=== PATIENT | female | born 1945 | race Caucasian/White ===

== ENCOUNTER 2024-01-28 12:43 | Emergency (ER) | payer MEDICARE, BC, SELFPAY ==
--- NOTE | ~2024-01-28 | XR_ITS ---
EXAMINATION: XR knee RT 3V DATE: 01/28/2024 13:27 INDICATION: Right knee injury. TECHNIQUE: 3 views of right knee were obtained. COMPARISON: None. 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 There is an oblique periprosthetic fracture of distal femoral metaphysis in near anatomic alignme nt. No periprosthetic lucency to suggest loosening or infection. No knee joint effusion. IMPRESSION: 1. Oblique periprosthetic fracture of distal femoral metaphysis in near anatomic alignment. Reviewed, dictated and finalized at location A. IMPRESSION: 1. Oblique periprosthetic fracture of distal femoral metaphysis in near anatomi c alignment.
[2024-01-28 12:48] VITALS: BP 151/87; PULSE 94; RESP 18; TEMP 36.7; O2SAT 99
[2024-01-28 14:40] VITALS: BP 141/86; PULSE 71; RESP 16; O2SAT 99
--- NOTE | 2024-01-28 14:50 | ED.LOWEXIN ---
HPI - Extremity Injury (Lower) General Chief Complaint: Extremity Injury, Lower Stated Complaint: R knee pain after fall in bathtub last night Related Data Allergies Allergy/AdvReac Type Severity Reaction Status Date / Time Penicillins Allergy Anaphylactic Verified 01/28/24 12:46 Shock Course Vital Signs Vital signs: Vital Signs Temperature 36.7 C 01/28/24 12:48 Pulse Rate 94 01/28/24 12:48 Respiratory Rate 18 01/28/24 12:48 Blood Pressure 151/87 H 01/28/24 12:48 Pulse Oximetry 99 01/28/24 12:48 Oxygen Delivery Room Air 01/28/24 12:48 Temperature 36.7 C 01/28/24 12:48 Pulse Rate 94 01/28/24 12:48 Respiratory Rate 18 01/28/24 12:48 Blood Pressure 151/87 H 01/28/24 12:48 Pulse Oximetry 99 01/28/24 12:48 Oxygen Delivery Room Air 01/28/24 12:48 Discharge Plan Discharge Follow-up/Referrals: PHYSICIAN NOT ON STAFF,NONSTAFF [Primary Care Provider] -
--- NOTE | 2024-01-28 15:51 | ED_ITS ---
HPI - Extremity Injury (Lower) General Chief Complaint: Extremity Injury, Lower Stated Complaint: R knee pain after fall in bathtub last night Time Seen by Provider: 01/28/24 15:30 Source: patient and family Mode of arrival: ambulatory Limitations: no limitations History of Present Illness HPI Narrative: patient slipped and fell in the bathtub last night hit the side of the right knee against the wall, no other injuries. Unable to put weight on it. Came to the emergency room by private car. History of right knee replacement 2010 [place] Related Data Allergies Allergy/AdvReac Type Severity Reaction Status Date / Time Penicillins Allergy Anaphylactic Verified 01/28/24 12:46 Shock Review of Systems Review of Systems: All systems reviewed & are unremarkable except as noted in HPI and below Course Vital Signs Vital signs: Vital Signs Temperature 36.7 C 01/28/24 12:48 Pulse Rate 94 01/28/24 12:48 Respiratory Rate 18 01/28/24 12:48 Blood Pressure 151/87 H 01/28/24 12:48 Pulse Oximetry 99 01/28/24 12:48 Oxygen Delivery Room Air 01/28/24 12:48 Temperature 36.7 C 01/28/24 12:48 Pulse Rate 94 01/28/24 12:48 Respiratory Rate 18 01/28/24 12:48 Blood Pressure 151/87 H 01/28/24 12:48 Pulse Oximetry 99 01/28/24 12:48 Oxygen Delivery Room Air 01/28/24 12:48 MDM - Extremity Injury (Lower) Imaging Data Radiologist's impression: Impressions Knee X-Ray 01/28/24 13:51 IMPRESSION: 1. Oblique periprosthetic fracture of distal femoral metaphysis in near anatomic alignment. Discharge Plan Discharge Clinical Impression: Fracture of femur Patient Disposition: Home, Self-Care Condition: Stable Instructions: Leg Fracture (ED) Additional Instructions: Return if symptoms are worsening , call your family physician for appointment, take Tylenol as as needed for aches and pain, continue home medications. [facility]nee immobil[facility] Prescriptions: New hydrocodone-acetaminophen 5-325 mg tablet 1 tablet PO Q6H Qty: 14 0RF Follow-up/Referrals: Ashu Walls MD [Physician] - 01/31/24 PHYSICIAN NOT ON STAFF,NONSTAFF [Primary Care Provider] -
[2024-01-28] MEDS: IBUPROFEN 600 MG TABLET PO (16:07)
[2024-01-28] MEDS: HYDROcodone/acetaminophen (*CRX) 5-325 MG TABLET 1 TAB PO (16:08)
[2024-01-28 16:36] VITALS: BP 139/83; PULSE 68; RESP 17; TEMP 37; O2SAT 99
== END 2024-01-28 16:38 | disposition home or self-care (01) ==
PROVIDERS: Emergency Provider Emergency Medicine
DX: S72.491A Other fracture of lower end of right femur, initial encounter for closed fracture (principal); M97.11XA Periprosthetic fracture around internal prosthetic right knee joint, initial encounter; W18.2XXA Fall in (into) shower or empty bathtub, initial encounter
CPT/HCPCS: 73562; 99284; A9270